=== PATIENT | male | born 1950 | race Caucasian/White ===

== ENCOUNTER 2017-02-04 05:35 | Outpatient (CLI) | payer BC ==
[~2017-02-04] VITALS: Ht 170.2 cm; Wt 79.4 kg
[~2017-02-04 05:35] MED LIST: APIX5TAB PO; INSU100V16 SQ; INSU100V5 SQ; LISI2.5T PO; METO-352 PO; ROSU20TA PO; SITA1TAB6 PO; janumet
[2017-02-04] MEDS ORDERED: LISI-552 PO (13:40)
== END 2017-02-04 13:43 ==
LOC: PREOP 05:35
PROVIDERS: ATTEND Surgery
DX: Z01.818 Encounter for other preprocedural examination (principal); Z12.11 Encounter for screening for malignant neoplasm of colon

== ENCOUNTER 2017-02-08 08:39 | Day surgery (SDC) | payer BC ==
[~2017-02-08] VITALS: Ht 170.2 cm; Wt 79.4 kg
[~2017-02-08 08:39] MED LIST changes: +LISI-552 PO; +NS IV 500 ML 500 ML ONE
[2017-02-08] MEDS ORDERED: NS IV 500 ML 500 ML IV PRN (09:00)
[2017-02-08] MEDS ORDERED: MIDAZOLAM 2 MG/2 ML (VERSED) VIAL IVP PRN (09:00)
--- NOTE | 2017-02-08 09:11 | Conscious Sedation/ASA ---
Conscious Sedation Pre-Proced Time Reviewed: 09:11 ASA Class: 3 Airway Mallampati Classification: ([place] appropriate class) I. II. III, IV Lungs Heart ASA score ASA 1: a normal healthy patient ASA 2: a patient with a mild systemic disease (mid diabetes, controlled hypertension, obesity ASA 3: a patient with a severe systemic disease that limits activity (angina , COPD, prior Myocardial infarction) ASA 4: a patient with an incapacitating disease that is a constant threat to life (CHF, renal failure) ASA 5: a moribund patient not expected to survive 24 hrs. (ruptured aneurysm) ASA 6: a declared brain patient whose organs are being harvested. For emergent operations, add the letter E after the classification Grade 1 Sedation Plan: Discussed options with patient/fam Note The patient is an appropriate candidate to undergo the planned procedure, sedation, and anesthesia. The patient immediately re-assessed prior to indication. CARLY ANDREWS MD Feb 08, 2017 9:11 am
--- NOTE | 2017-02-08 09:11 | History & Physicial ---
History of Present Illness History of Present Illness Reason for visit/HPI to undergo screening colonoscopy Date of Admission Date Seen by Provider: Feb 08, 2017 Time Seen by Provider: 09:08 I consulted on this patient on 02/08/17 09:08 Attending Physician Carly Andrews MD Admitting Physician Laz Hicks MD Consult Allergies and Home Medications Allergies Coded Allergies: Penicillins (Verified Allergy, Unknown, HIVES, 02/04/17) Home Medications Apixaban 5 Mg Tablet, 5 MG PO BID, (Reported) Insulin Aspart 100 Unit/1 Ml Susp, 8 UNIT SQ BID WITH MEALS, (Reported) USES A SLIDING SCALE Insulin Determir 1,000 Units/10 Ml Soln, 15 UNITS SQ BID, (Reported) Lisinopril 20 Mg Tablet, 20 MG PO DAILY, (Reported) Rosuvastatin Calcium 20 Mg Tablet, 20 MG PO DAILY, (Reported) Sitagliptin Phos/Metformin HCl 1 Each Tablet, 1 EACH PO BID, (Reported) Past Xmaptuf-Xzowgj-Zpdijj Hx Patient Social History Former Smoker, Quit: Feb 05, 2000 Recent Foreign Travel: No Contact w/other who traveled: No Recent Hopitalizations: No Seasonal Allergies Seasonal Allergies: No Respiratory No Cardiovascular Yes Atrial Fibrillation, Hypertension Neurological No Genitourinary No Gastrointestinal Yes Gastroesophageal Reflux Musculoskeletal No Endocrine History of Endocrine Disorders: Yes Endocrine Disorders: Diabetes, Insulin dep Cancer No Psychosocial History of Psychiatric Problem: No Integumentary History of Skin or Integumenta: No Constitutional: no symptoms reported EENTM: no symptoms reported Respiratory: no symptoms reported Cardiovascular: no symptoms reported Gastrointestinal: no symptoms reported Genitourinary: no symptoms reported Musculoskeletal: no symptoms reported Skin: no symptoms reported Psychiatric/Neurological: No Symptoms Reported Physical Exam Vital Signs Capillary Refill : General Appearance: No Apparent Distress HEENT: Normal ENT Inspection Neck: Normal Inspection Cardiovascular: No Murmur Gastrointestinal: Non Tender, Soft Rectal: Deferred Back: Normal Inspection Extremity: Normal Inspection Neurologic/Psychiatric: Alert, Oriented x3 Skin: Warm/Dry Assessment/Plan Assessment and Plan gentleman for screening colonoscopy. Polyps, diverticular disease etc. discussed. Increased risk of bleeding, should polypectomy be required, in view of anticoagulant therapy highlighted. Continue anticoagulant is essential in view of recent cardiac ablation. Problems: CARLY ANDREWS MD Feb 08, 2017 9:11 am
[2017-02-08 09:14] VITALS: BP 151/67
[2017-02-08] MEDS ORDERED: fentaNYL INJECTION 100 MCG/2 ML AMP ONE ×2 (09:30)
[2017-02-08] MEDS ORDERED: MIDAZOLAM 2 MG/2 ML (VERSED) VIAL ONE ×4 (09:31)
[2017-02-08] MEDS: fentaNYL INJECTION 100 MCG/2 ML AMP IVP PRN ×3 (09:35→09:45)
--- NOTE | 2017-02-08 09:57 | Endo Procedure Record ---
Endo Procedure Report Date of Procedure Feb 08, 2017 Surgeon (s) CARLY ANDREWS MD Post Procedure/Op Diagnosis normal examination Procedure Performed colonoscopy to cecum Description of Procedure Anesthesia Type: Conscious Sedation Specimen(s) collected/removed none Description of the Procedure Indication for procedure: This gentleman came in for screening colonoscopy. He reported a personal history of polyps about 8 years ago. Due to recent cardiac ablation to manage recurrent atrial fibrillation, it was felt necessary to continue anticoagulation therapy. 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 Increased risk of bleeding, should polypectomy be required was highlighted Informed consent was obtained after reviewing the procedure in detail. Description of the procedure: He was placed in left lateral decubitus position and his vital signs were monitored. Conscious sedation was achieved using Versed and fentanyl. Digital rectal examination was unremarkable. The colonoscope was then introduced into the rectum and advanced all the way up to the cecum. The quality of bowel preparation was excellent. The scope was then withdrawn slowly and the mucosa examined in a systematic fashion. There was no abnormality He tolerated the procedure well and was taken back to the nursing area in a stable condition. Impression: Normal screening colonoscopy. No family history. Recommend repeating 10 years. Copies To: LAVERN QUINTEROS MD Copies To: MARIPOSA PAULINO MD, XAVIER M MD Feb 08, 2017 9:57 am
--- NOTE | 2017-02-08 09:58 | Discharge Inst-Simple/Standard ---
Discharge Inst-Standard Discharge Medications New, Converted or Re-Newed RX: Other Patient Instructions/Follow Up Plan of Care/Instructions/FU: repeat colonoscopy in 10 years Activity as Tolerated: Yes Discharge Diet: No Restrictions CARLY ANDREWS MD Feb 08, 2017 9:58 am
[2017-02-08 10:45] VITALS: BP 107/68
== END 2017-02-08 10:59 | disposition home or self-care (01) ==
LOC: ENDO 08:39
PROVIDERS: ATTEND Surgery
DX: Z12.11 Encounter for screening for malignant neoplasm of colon (principal); Z86.010 Personal history of colon polyps; I48.91 Unspecified atrial fibrillation; Z79.01 Long term (current) use of anticoagulants; I10 Essential (primary) hypertension; E11.9 Type 2 diabetes mellitus without complications; Z79.4 Long term (current) use of insulin; K21.9 Gastro-esophageal reflux disease without esophagitis

== ENCOUNTER 2018-11-04 19:40 | Outpatient (CLI) | payer MEDICARE, OTHER ==
[~2018-11-04 19:40] MED LIST changes: -NS IV 500 ML 500 ML ONE; -ROSU20TA PO; +ROSU20TA2 PO
== END 2018-11-05 06:00 | disposition home or self-care (01) ==
LOC: SLEEP 19:40
PROVIDERS: ATTEND Nurse Practitioner Family
DX: G47.33 Obstructive sleep apnea (adult) (pediatric) (principal)
CPT/HCPCS: 95810

== ENCOUNTER → 2019-07-03 | Outpatient (CLI) | payer MEDICARE, OTHER | LOC: CARD 07:59 | PROVIDERS: ATTEND Internal Medicine Cardiovascular Disease | DX: I47.1 Supraventricular tachycardia (principal); E78.5 Hyperlipidemia, unspecified; I10 Essential (primary) hypertension; I25.10 Atherosclerotic heart disease of native coronary artery without angina pectoris | CPT/HCPCS: 93306 ==

== ENCOUNTER → 2022-05-12 | Outpatient (CLI) | payer MEDICARE, OTHER ==
[~2022-05-12] MED LIST changes: -LISI-552 PO; -LISI2.5T PO; +LISI2.5T13 PO; +LISI20TA26 PO
--- NOTE | 2022-05-12 18:10 | Diagnostic Imaging Report ---
Indication: Low back pain. Time of Exam: 11:13 AM AP, lateral and coned lumbosacral views of the lumbar spine were obtained. Curvature and alignment of the lumbar spine is normal. Vertebral body heights are well-maintained. No acute compression fracture is identified. There is multilevel degenerative disc disease with variable disc space narrowing and marginal spurring. The abdominal aorta is heavily calcified. IMPRESSION: Lumbar spondylosis. No acute abnormality is detected. Dictated by: Dictated on workstation # [id number]
== END ==
LOC: RAD 10:53
PROVIDERS: ATTEND Nurse Practitioner Family
DX: M47.816 Spondylosis without myelopathy or radiculopathy, lumbar region (principal)
CPT/HCPCS: 72100